=== PATIENT | male | born 1965 | race African-American/Black ===

== ENCOUNTER 2020-07-18 06:11 | Observation (INO) | payer OTHER ==
[2020-07-16 14:17] VITALS: BMI 25.1
[2020-07-18] MEDS ORDERED: Fentanyl 250 MCG/5 ML VIAL ONE (06:38)
[2020-07-18] MEDS ORDERED: Rocuronium Bromide 10 MG/ML (10ML VIAL) ONE (07:37)
[2020-07-18] MEDS ORDERED: PHENYLEPHRINE-NS 100 MCG/ML 10 ML SYRINGE ONE (07:37)
[2020-07-18] MEDS ORDERED: Ondansetron PF 4 MG/2 ML Vial ONE ×2 (07:37→08:56)
[2020-07-18] MEDS ORDERED: Dexamethasone 20 MG/5 ML VIAL ONE ×2 (07:37→08:12)
[2020-07-18] MEDS ORDERED: Lidocaine 1% PF 5 ML VIAL ONE (07:37)
[2020-07-18] MEDS ORDERED: PROPOFOL 200 MG/20 ML VIAL ONE (07:37)
[2020-07-18] MEDS ORDERED: SUGAMMADEX SODIUM 200 MG/2 ML VIAL ONE (08:12)
[2020-07-18] MEDS ORDERED: Promethazine HCl 25 MG/ML VIAL IM PRN ×2 (08:49→12:00)
[2020-07-18] MEDS ORDERED: HYDROmorphone 2 MG/ML VIAL SLOW IVP PRN (08:49)
[2020-07-18] MEDS ORDERED: Ketorolac Tromethamine 30 MG/ML VIAL IVP PRN (08:49)
[2020-07-18] MEDS ORDERED: Promethazine HCl 25 MG/ML VIAL SLOW IVP PRN (08:49)
[2020-07-18] MEDS ORDERED: Ondansetron HCl/PF 4 MG/2 ML Vial IVP PRN (08:49)
[2020-07-18] MEDS ORDERED: Fentanyl 100 MCG/2 ML VIAL ONE ×2 (08:56→09:09)
[2020-07-18] MEDS ORDERED: Promethazine HCl 25 MG/ML VIAL ONE (09:09)
[2020-07-18] MEDS ORDERED: HYDROmorphone 0.5 MG/0.5 ML SYRINGE ONE (09:15)
[2020-07-18] MEDS ORDERED: Morphine 4 MG/ML VIAL SLOW IVP PRN (12:00)
[2020-07-18] MEDS ORDERED: Promethazine HCl 12.5 MG SUPP PR PRN (12:00)
[2020-07-18] MEDS ORDERED: diphenhydrAMINE 25 MG CAP PO PRN (12:00)
[2020-07-18] MEDS ORDERED: Acetaminophen/Codeine 30-300mg Tablet PO PRN (12:00)
[2020-07-18] MEDS ORDERED: Promethazine 25 MG TAB PO PRN (12:00)
[2020-07-18] MEDS ORDERED: traMADol HCl 50 MG TAB PO PRN (12:00)
[2020-07-18] MEDS ORDERED: diphenhydrAMINE 50 MG/ML VIAL IVP PRN (12:00)
[2020-07-18] MEDS ORDERED: Ondansetron PF 4 MG/2 ML Vial IVP PRN (12:00)
[2020-07-18] MEDS ORDERED: Milk Of Magnesia 30 ML UDCUP PO PRN (12:00)
[2020-07-18] MEDS ORDERED: Morphine 2 MG/ML VIAL SLOW IVP PRN (12:00)
[2020-07-18] MEDS: Sodium Chloride 0.9% 1,000 ML IV SCH (12:25)
[2020-07-18] MEDS: Gabapentin 300 MG CAP PO SCH ×2 (14:42→21:02)
[2020-07-18] MEDS: CEFAZOLIN 2 GM in Premix Bag 1 BAG IVPB SCH ×2 (14:42→23:40)
[2020-07-18] MEDS: Acetaminophen/Codeine 30-300mg Tablet PO PRN ×2 (14:43→19:21)
[2020-07-18] MEDS: tiZANidine HCl 4 MG TAB PO PRN ×2 (14:43→23:40)
[2020-07-18] MEDS ORDERED: Cepastat Lozenges 1 LOZ PO SCH (15:30)
[2020-07-18] MEDS: traMADol HCl 50 MG TAB PO PRN (21:03)
[2020-07-18] MEDS: Mag-Al 1200 mg/1200 mg/30 ML UDCUP PO PRN (21:03)
[2020-07-19] MEDS ORDERED: Cepastat Lozenges 1 LOZ PO PRN (00:17)
[2020-07-19] MEDS: Acetaminophen/Codeine 30-300mg Tablet PO PRN ×2 (01:15→06:09)
[2020-07-19] MEDS: Mag-Al 1200 mg/1200 mg/30 ML UDCUP PO PRN (01:18)
[2020-07-19] MEDS: Sodium Chloride 0.9% 1,000 ML IV SCH (01:20)
[2020-07-19] MEDS: traMADol HCl 50 MG TAB PO PRN (04:03)
[2020-07-19] MEDS ORDERED: Tamsulosin HCl 0.4 MG CAP PO SCH (06:00)
[2020-07-19] MEDS: CEFAZOLIN 2 GM in Premix Bag 1 BAG IVPB SCH (06:08)
[2020-07-19] MEDS: tiZANidine HCl 4 MG TAB PO PRN (07:53)
[2020-07-19] MEDS: Gabapentin 300 MG CAP PO SCH (07:53)
[2020-07-19 08:17] VITALS: BP 132/81; TEMP 99.2
[2020-07-19] MEDS ORDERED: Atenolol 50 MG TAB PO SCH (09:00)
[2020-07-19] MEDS ORDERED: Hydrochlorothiazide 25 MG TAB PO SCH (09:00)
== END 2020-07-19 10:18 | disposition home or self-care (01) ==
LOC: SDC 06:11 → SURG A 08:47
PROVIDERS: ADMIT Neurological Surgery; ATTEND Neurological Surgery
PROC: 0RG20A0 Fusion of 2 or more Cervical Vertebral Joints with Interbody Fusion Device, Anterior Approach, Anterior Column, Open Approach (ICD-10-PCS; principal; 2020-07-19)
PROC: 0RG2070 Fusion of 2 or more Cervical Vertebral Joints with Autologous Tissue Substitute, Anterior Approach, Anterior Column, Open Approach (ICD-10-PCS; 2020-07-19)
PROC: 0RT30ZZ Resection of Cervical Vertebral Disc, Open Approach (ICD-10-PCS; 2020-07-19)
DX: M50.122 Cervical disc disorder at C5-C6 level with radiculopathy (principal); I10 Essential (primary) hypertension; Z79.899 Other long term (current) drug therapy
CPT/HCPCS: 76000; 96374; 96376; C1713; C1776; G0378; J0690; J1100; J1170; J2405; J2550; J2704; J3010; J3490